=== PATIENT | male | born 1965 | race Caucasian/White ===

== ENCOUNTER 2024-02-02 20:10 | Emergency (ER) | payer OTHER, SELFPAY ==
[2024-02-02 20:19] VITALS: BP 175/108
[2024-02-02 20:54] LABS: % Basophils 0.6 % (0-2); % Eosinophils 0.8 % (0-6); % Immature Granulocytes 0.3 % (0-0.5); % Lymphocytes 16.1 % (20.5-51.1); % Monocytes 8.8 % (1.7-9.3); % Neutrophils 73.4 % (42.2-75.2); Absolute Basophils 0.1 10^3/uL (0-0.2); Absolute Eosinophils 0.1 10^3/uL (0-0.7); Absolute Lymphocytes 1.4 10^3/uL (1.2-3.4); Absolute Monocytes 0.8 10^3/uL (0.1-0.6); Absolute Neutrophils 6.5 10^3/uL (1.4-6.5); Hematocrit 43.1 % (39.0-52.0); Hemoglobin 14.5 g/dL (13.0-18.0); Mean Corp Hgb Conc. 33.6 g/dL (33.0-37.0); Mean Corpuscular Hgb 32.8 pg (27.0-31.0); Mean Corpuscular Volume 97.5 fL (80.0-94.0); Nucleated Red Blood Cells % 0 % (-); Platelet Count 164 10^3/uL (130-400); Red Blood Cell Count 4.42 10^6/uL (4.70-6.10); Red Cell Dist. Width 12.6 % (11.5-14.5); White Blood Cell Count 8.8 10^3/uL (4.8-10.8)
[2024-02-02 21:06] LABS: ALT (SGPT) 46 U/L (0-50); AST (SGOT) 38 U/L (17-59); Albumin 4.1 g/dl (3.5-5.0); Alkaline Phosphatase 76 U/L (38-126); Blood Urea Nitrogen 17 mg/dl (9-20); Calcium 8.5 mg/dl (8.4-10.2); Carbon Dioxide 24 mmol/L (22-30); Chloride 105 mmol/L (98-107); Glucose 92 mg/dl (70-99); Potassium 3.7 mmol/L (3.5-5.1); Sodium 135 mmol/L (135-145); Total Bilirubin 0.8 mg/dl (0.2-1.3); Total Protein 6.8 g/dl (6.3-8.2); eGFR > 60.00
[2024-02-02 21:18] LABS: Troponin I < 0.012 ng/ml
--- NOTE | 2024-02-03 00:02 | ED.GENMED ---
History of Present Illness
<ISAAC Ann - Last Filed: 02/03/24 00:31>
General
Chief Complaint: Weakness
Source: patient
Exam Limitations: none
Time Seen by Provider: 02/02/24 23:58
Nursing documentation reviewed up to this point in time: agreed with
Travel History
Have you had any contact with someone who has COVID-19?: No
Do you have any symptoms of coronavirus? Fever > 100 degrees, chills, cough, shortness of breath, sore throat, loss of taste or smell, muscle aches, or headache?: No
History of Present Illness
History of Present Illness:
patient is a 59 y/o male with of HTN presenting for weakness x few weeks. patient states it has gotten worse in the last day. Patient states he notices it in times of exertion like walking or doing lawn work. Patient states nothing has made it
better or worse. patient states he will feel dizziness spontaneously that will resolve on tis own. Patient admits that he felt left sided facial weakness once today that resolved itself. patient denies SOB, CP, visual changes, palpitations, N/V/D/C,
fever. patient admits to 2-3 drinks of alcohol yesterday but denies any smoking. patients BP on admission was 175/108 for which he takes losartan for regularly. patient denies adequate water intake throughout the day.
Past History
<ISAAC Ann - Last Filed: 02/03/24 00:31>
Past History
ED Past Medical History: HTN
ED Past Surgical History: None
Social History
Tobacco: Non-smoker
Alcohol: Occasional
Review of Systems
<ISAAC Ann - Last Filed: 02/03/24 00:31>
Review of Systems
All Other Systems: Not applicable
Constitutional: Reports fatigue
EENT: Reports no symptoms
Respiratory: Reports no symptoms
Cardiac: Reports no symptoms
ABD/GI: Reports no symptoms
: Reports no symptoms
Musculoskeletal: Reports no symptoms
Skin: Reports no symptoms
Neurological: Reports dizzy, weakness and numbness
Endocrine: Reports no symptoms
Hematologic/Lymphatic: Reports no symptoms
Psychiatric: Reports no symptoms
Phy Exam
<ISAAC Ann - Last Filed: 02/03/24 00:31>
General Physical Exam
General Presentation: well appearing and no apparent distress
General Skin: warm and dry
General Habitus: normal
General Mental: alert
General Hydration: appears well hydrated
ENT Exam
ENT Exam: EOMI, pharynx normal, neck supple and normocephalic
Eye Exam
Eye Exam: PERRL, cornea clear and conjunctiva normal
Cardiovascular Exam
Cardiovascular Exam: regular rate/rhythm, no edema, no murmur and normal peripheral pulses
Pulmonary Exam
Pulmonary Exam: lungs clear, no respiratory distress, no rales, no crackles, no rhonchi, no stridor, no wheezing and no cough
Gastrointestinal Exam
Gastrointestinal Exam: normal bowel sounds, non tender, soft, no organomegaly, no pulsatile mass and non distended
Neurological Exam
Neurological Exam: alert, oriented x3, no motor deficits and speech normal
Musculoskeletal Exam
Musculoskeletal Exam: full ROM and no edema
Skin Exam
Skin Exam: normal color, warm/dry, no rash and no petechia
Psychiatric Exam
Psychiatric Exam: normal mood/affect
Course
<ISAAC Ann - Last Filed: 02/03/24 00:31>
Orders/Labs/Results
Orders:
Orders
02/02/24 20:27
Electrocardiogram (*1) Urgent
Reason for Study: Fatigue / Weakness
EKG- Treatment ONCE
02/02/24 20:47
CMP [Comprehensive Metabolic Panel] Urgent
Complete Blood Count/With Diff Urgent
Troponin I Urgent
02/03/24 01:19
Orthostatic VS- Treatment ONCE
02/03/24 01:20
Orthostatic VS- Treatment ONCE
Abnormal Lab Results
02/02/24
20:47
RBC 4.42 L 10^6/uL
(4.70-6.10)
MCV 97.5 H fL
(80.0-94.0)
MCH 32.8 H pg
(27.0-31.0)
MPV 11.0 H fL
(7.4-10.4)
Absolute Monos (auto) 0.8 H 10^3/uL
(0.1-0.6)
Lymphocytes % 16.1 L %
(20.5-51.1)
02/02/24 20:47
02/02/24 20:47
Vital Signs
Initial and Last Documented VS:
Initial Vital Signs
Temp Pulse Resp BP Pulse Ox
98.2 F 103 20 175/108 97
02/02/24 20:19 02/02/24 20:19 02/02/24 20:19 02/02/24 20:19 02/02/24 20:19
Last Documented Vital Signs
Temp Pulse Resp BP Pulse Ox
98.2 F 103 20 175/108 97
02/02/24 20:19 02/02/24 20:19 02/02/24 20:19 02/02/24 20:19 02/02/24 20:19
<Rajat Boo, DO - Last Filed: 02/03/24 01:31>
Orders/Labs/Results
Orders:
Orders
02/02/24 20:27
Electrocardiogram (*1) Urgent
Reason for Study: Fatigue / Weakness
EKG- Treatment ONCE
02/02/24 20:47
CMP [Comprehensive Metabolic Panel] Urgent
Complete Blood Count/With Diff Urgent
Troponin I Urgent
02/03/24 01:19
Orthostatic VS- Treatment ONCE
02/03/24 01:20
Orthostatic VS- Treatment ONCE
Abnormal Lab Results
02/02/24
20:47
RBC 4.42 L 10^6/uL
(4.70-6.10)
MCV 97.5 H fL
(80.0-94.0)
MCH 32.8 H pg
(27.0-31.0)
MPV 11.0 H fL
(7.4-10.4)
Absolute Monos (auto) 0.8 H 10^3/uL
(0.1-0.6)
Lymphocytes % 16.1 L %
(20.5-51.1)
02/02/24 20:47
02/02/24 20:47
Vital Signs
Initial and Last Documented VS:
Initial Vital Signs
Temp Pulse Resp BP Pulse Ox
98.2 F 103 20 175/108 97
02/02/24 20:19 02/02/24 20:19 02/02/24 20:19 02/02/24 20:19 02/02/24 20:19
Last Documented Vital Signs
Temp Pulse Resp BP Pulse Ox
98.2 F 103 20 175/108 97
02/02/24 20:19 02/02/24 20:19 02/02/24 20:19 02/02/24 20:19 02/02/24 20:19
<ISAAC Ann - Last Filed: 02/03/24 00:31>
MDM/Problems Addressed
Differential Diagnosis Includes:
THN exacerbation
CVA
dysrrhythmia
MDM/Problems Addressed:
patient is 59 y/o male presenting for weakness x few days
Chronic conditions affecting care: HTN
<Rajat Boo DO - Last Filed: 02/03/24 01:31>
MDM/Problems Addressed
Differential Diagnosis Includes:
HTN exacerbation
CVA
dysrrhythmia
<ISAAC Ann - Last Filed: 02/03/24 00:31>
*Critical Care Note
Total Time (30-74mins, 75-104mins- exclusive of procedures): Not Applicable
<Rajat Boo DO - Last Filed: 02/03/24 01:31>
*Critical Care Note
Total Time (30-74mins, 75-104mins- exclusive of procedures): Not Applicable
<Rajat Boo DO - Last Filed: 02/03/24 01:31>
Patient Management
Social determinants of health affecting care: Living situation and Strong social support
ED Attending Note
<ISAAC Ann - Last Filed: 02/03/24 00:31>
-
Portions of this chart may have been created with voice recognition software.� Occasional wrong word or��sound alike� substitutions may have occurred due to the inherent limitations of voice recognition software.
<Rajat Boo DO - Last Filed: 02/03/24 01:31>
ED Attending Note
Patient seen and examined by attending physician: Yes
I performed the substantive portion of visit, reviewed & personally made and approve the management plan that is documented in note by myself or ESTEFANY.: No
ED Attending Note:
Pleasant 59-year-old male presents with weakness that has been going on for the last few weeks. He denies chest pain or shortness of breath. Today he was at his yard gardening and doing yard work. He states that he felt weak again. Patient did
have intermittent dizziness which she stated resolved spontaneously. Patient also reported left-sided facial weakness that was very brief and completely resolved hours before coming to the emergency department. Patient admits to drinking 2-3
alcoholic beverages yesterday. Patient does have a history of hypertension. Patient was seen in conjunction with the PA student. I have reviewed and agree with the history and treatment plan presented. On my independent physical exam, patient is
awake, alert, and oriented x3, no acute distress. Heart is regular rate and rhythm. Lungs are clear to auscultation bilaterally without wheezes rales or rhonchi present. Abdomen is soft and nontender. Moves all 4 extremities. At this point he
had received a liter of fluids and states that his symptoms have completely resolved. Patient denies any chest pain or shortness of breath. I do feel that patient should follow-up with cardiology as he has never been to one. His mother went to
Dr. Osborne and he prefers Dr. Osborne. Patient to be discharged home.
Discharge Plan
Departure
Condition: Good
Discharge Problem:
Weakness
Instructions: Generalized Weakness (DC), BLOOD PRESSURE
Referrals:
Allan Mallory DO [Family Provider] -
Phoenix Osborne MD [Active] -
Activity Restrictions/Additional Instructions:
It was a pleasure meeting you and taking part in your care. We hope for your continued healing and wellness.
Please read discharge instructions in their entirety. However, they are for general education and may not describe your exact diagnosis at discharge. Information on your ER visit and medical conditions were discussed with you along with appropriate
follow up information...
If indicated, please take your medications as instructed and indicated on discharge paperwork.
Please schedule a follow up appointment as directed. Call to schedule an appointment
Please return to the emergency department with ANY change in, persisting, or worsening of symptoms. If any of your symptoms do not improve, or persist, or become more severe within 6-12 hours, please return to the emergency department for further
care.
Please return to the emergency department if you develop a headache, neck pain/stiffness, fever greater than 100.4F, chest pain, shortness of breath, persistent nausea, vomiting, slurred speech, difficulty walking, numbness/tingling, weakness, signs
of infection or any other symptoms that are worrisome to you.
If you have any questions or concerns please do not hesitate to call the Hospital at or E-mail me directly at [email or web address]
Interventions
Interventions:
*Risk Screen - Suicide Last Done: 02/02/24 20:19
*General Assessment Last Done: 02/02/24 20:19
*Neglect/Abuse Screening Last Done: 02/02/24 20:19
ED- Fall Risk Assessment Last Done: 02/02/24 20:19
*ED COVID-19 Vaccine History Last Done: 02/02/24 20:19
[2024-02-03 01:19] VITALS: BP 154/93; BP 157/91; BP 166/91; PULSE 74; PULSE 77; PULSE 79
== END 2024-02-03 01:53 | disposition home or self-care (01) ==
LOC: EMR 20:10
PROVIDERS: Emergency Medicine; EMERGENCY PHYSICIAN Student in an Organized Health Care Education/Training Program; FAMILY PHYSICIAN Family Medicine
DX: R53.1 Weakness (principal); I10 Essential (primary) hypertension
CPT/HCPCS: 99284; 80053; 84484; 85025; 93005

== ENCOUNTER 2024-02-03 19:52 | Emergency (ER) | payer OTHER, SELFPAY ==
[2024-02-03 19:56] VITALS: BP 190/106
[2024-02-03 20:12] LABS: % Basophils 1.1 % (0-2); % Eosinophils 2.7 % (0-6); % Immature Granulocytes 0.2 % (0-0.5); % Lymphocytes 34.7 % (20.5-51.1); % Monocytes 13.6 % (1.7-9.3); % Neutrophils 47.7 % (42.2-75.2); Absolute Basophils 0.1 10^3/uL (0-0.2); Absolute Eosinophils 0.1 10^3/uL (0-0.7); Absolute Lymphocytes 1.6 10^3/uL (1.2-3.4); Absolute Monocytes 0.6 10^3/uL (0.1-0.6); Absolute Neutrophils 2.1 10^3/uL (1.4-6.5); Hematocrit 42.6 % (39.0-52.0); Hemoglobin 14.8 g/dL (13.0-18.0); Mean Corp Hgb Conc. 34.7 g/dL (33.0-37.0); Mean Corpuscular Hgb 33.2 pg (27.0-31.0); Mean Corpuscular Volume 95.5 fL (80.0-94.0); Mean Platelet Volume 10.8 fL (7.4-10.4); Nucleated Red Blood Cells % 0 % (-); Platelet Count 184 10^3/uL (130-400); Red Blood Cell Count 4.46 10^6/uL (4.70-6.10); Red Cell Dist. Width 12.6 % (11.5-14.5); White Blood Cell Count 4.5 10^3/uL (4.8-10.8)
[2024-02-03 20:18] VITALS: BP 163/93
[2024-02-03 20:25] LABS: ALT (SGPT) 45 U/L (0-50); AST (SGOT) 44 U/L (17-59); Alkaline Phosphatase 75 U/L (38-126); Blood Urea Nitrogen 11 mg/dl (9-20); Calcium 8.7 mg/dl (8.4-10.2); Carbon Dioxide 27 mmol/L (22-30); Chloride 107 mmol/L (98-107); Glucose 108 mg/dl (70-99); Potassium 4.5 mmol/L (3.5-5.1); Sodium 137 mmol/L (135-145); Total Bilirubin 0.7 mg/dl (0.2-1.3); Total Protein 6.8 g/dl (6.3-8.2); eGFR > 60.00
[2024-02-03 20:38] LABS: Troponin I < 0.012 ng/ml
[2024-02-03 21:00] VITALS: BP 174/102
--- NOTE | 2024-02-03 21:46 | ED.GENMED ---
History of Present Illness
General
Chief Complaint: Chest Pain
Source: patient
Exam Limitations: none
Time Seen by Provider: 02/03/24 20:37
Nursing documentation reviewed up to this point in time: agreed with
Travel History
Have you had any contact with someone who has COVID-19?: No
Do you have any symptoms of coronavirus? Fever > 100 degrees, chills, cough, shortness of breath, sore throat, loss of taste or smell, muscle aches, or headache?: No
History of Present Illness
History of Present Illness:
Patient with history of hypertension on losartan, presents to ED secondary to intermittent chest pain since this afternoon, along with elevated blood pressure. Chest pain described as tightness, with radiation to his jaw, without any alleviating or
exacerbating factors. Denies trauma. Denies back pain. Denies leg pain or swelling. Denies shortness of breath. Denies dizziness. Denies nausea, vomiting, or diaphoresis. Of note, patient was seen in ED yesterday secondary to generalized
fatigue which occurred after working outdoors yesterday. In addition, over the past 2 weeks, patient is reporting exertional lightheadedness and fatigue, and 'not feeling well'. Denies smoking, but does admit to drinking alcohol socially. There
is family history of heart disease, with both mother and father in their 60s.
Past History
Past History
ED Past Medical History: HTN
ED Past Surgical History: None
Social History
Tobacco: Non-smoker
Alcohol: Occasional
Review of Systems
Review of Systems
Allergies reviewed?: Yes
All Other Systems: ROS reviewed and negative except as documented in HPI and ROS
Constitutional: Reports fatigue
EENT: Reports no symptoms
Cardiac: Reports chest pain
ABD/GI: Reports no symptoms
: Reports no symptoms
Musculoskeletal: Reports no symptoms
Skin: Reports no symptoms
Neurological: Reports weakness
Phy Exam
Physical Exam
Physical Exam:
Physical Exam
General: no apparent distress, not acutely ill. afebrile
Head: nc/at. eomi
Neck: supple. no meningeal signs.
Heart: s1/s2 regular rate and rhythm, no murmur. equal radial pulses.
Lungs: no acute respiratory distress. clear bilaterally
Abdomen: normal bowel sounds. not tender.
Neuro: alert and oriented. no focal neurological deficits
Skin: no rash
Psychiatric: well kept. interactive and cooperative
Extremities: no edema. no calf tenderness.
Scores
Heart Score for Chest Pain Patients
STEMI patient?: No
History: Slightly or Non-Suspicious
ECG: Normal
Age: >45 - <65 years
Risk Factors: 1 or 2 Risk Factors
Troponin: </= Normal Limit
Heart Score for Chest Pain Patients: 2
Heart Score Risk: 2.5% MACE over next 6 weeks
Course
Orders/Labs/Results
Orders:
Orders
02/03/24 19:55
Electrocardiogram (*1) Urgent
Reason for Study: Chest Pain
EKG- Treatment ONCE
02/03/24 20:04
CMP [Comprehensive Metabolic Panel] Urgent
Complete Blood Count/With Diff Urgent
Troponin I Urgent
02/03/24 21:58
Amlodipine [Norvasc] 2.5 mg PO NOW STA
02/03/24 22:15
Amlodipine [Norvasc] 5 mg PO NOW STA
Abnormal Lab Results
02/03/24
20:04
WBC 4.5 L 10^3/uL
(4.8-10.8)
RBC 4.46 L 10^6/uL
(4.70-6.10)
MCV 95.5 H fL
(80.0-94.0)
MCH 33.2 H pg
(27.0-31.0)
MPV 10.8 H fL
(7.4-10.4)
Monocytes % 13.6 H %
(1.7-9.3)
Glucose 108 H mg/dl
(70-99)
02/03/24 20:04
02/03/24 20:04
Vital Signs
Initial and Last Documented VS:
Initial Vital Signs
Temp Pulse Resp BP Pulse Ox
97.8 F 72 24 190/106 98
02/03/24 19:56 02/03/24 19:56 02/03/24 19:56 02/03/24 19:56 02/03/24 19:56
Last Documented Vital Signs
Temp Pulse Resp BP Pulse Ox
97.8 F 65 17 186/102 97
02/03/24 19:56 02/03/24 22:55 02/03/24 22:00 02/03/24 22:55 02/03/24 22:45
MDM/Problems Addressed
MDM/Problems Addressed:
Patient with an unremarkable workup in ED, including blood work and EKG.
Discussed with Dr. Bell, cardiology. Recommends adding amlodipine to better control his blood pressure along with an outpatient follow-up with cardiology.
Pt and spouse agree with treatment plan.
*EKG
Interpreted by ED Provider?: Yes
EKG Intrepretation Date: 02/03/24
Heart Rate: 72
Rate: normal
Rhythm: sinus
[place]: normal axis
Interval: normal interval
*Critical Care Note
Total Time (30-74mins, 75-104mins- exclusive of procedures): Not Applicable
ED Attending Note
-
Portions of this chart may have been created with voice recognition software.� Occasional wrong word or��sound alike� substitutions may have occurred due to the inherent limitations of voice recognition software.
Discharge Plan
Departure
Patient Disposition: Home (Routine Discharge)
Date of Disposition: 02/03/24
Time of Disposition: 22:16
Patient with high blood pressure during this ER visit?: Yes
Condition: Fair
Discharge Problem:
Hypertension, Chest pain
Instructions: High Blood Pressure (DC), Chest Pain DCA Follow Up
Prescriptions:
New
amlodipine 5 mg tablet
5 mg PO DAILY Qty: 20 0RF
Referrals:
Minor Bell MD [Active] -
Allan Mallory DO [Family Provider] -
Activity Restrictions/Additional Instructions:
As discussed, please follow-up with referred pipe cleaning machine operator for further evaluation. Your prescriptions been sent electronically to [facility] pharmacy in [place].
Interventions
Interventions:
*Risk Screen - Suicide Last Done: 02/03/24 19:56
*General Assessment Last Done: 02/03/24 23:17
*Neglect/Abuse Screening Last Done: 02/03/24 19:56
*Nursing Disposition Last Done: 02/03/24 23:17
ED- Cardiac Assessment Last Done: 02/03/24 20:10
ED- Neurological Assessment Last Done: 02/03/24 20:10
ED- Pulmonary Assessment Last Done: 02/03/24 20:10
Discharge Date and Time
Discharge Date/Time: 02/03/24 22:55
[2024-02-03 22:00] VITALS: BP 186/102
[2024-02-03] MEDS: NORVASC 5 MG PO (22:55)
== END 2024-02-03 22:55 | disposition home or self-care (01) ==
LOC: EMR 19:52
PROVIDERS: EMERGENCY PHYSICIAN Emergency Medicine; FAMILY PHYSICIAN Family Medicine
DX: I10 Essential (primary) hypertension (principal); R07.89 Other chest pain; Z79.899 Other long term (current) drug therapy
CPT/HCPCS: 99283; 80053; 84484; 85025; 93005

== ENCOUNTER → 2024-02-21 11:26 | Outpatient (REF) | payer OTHER, SELFPAY | LOC: DHCBC/DCA 11:26 | PROVIDERS: ATTENDING PHYSICIAN Internal Medicine Cardiovascular Disease; FAMILY PHYSICIAN Family Medicine | DX: R42 Dizziness and giddiness (principal); R07.2 Precordial pain | CPT/HCPCS: 78452; 93017; A9500 ==

== ENCOUNTER → 2024-02-26 08:07 | Outpatient (REF) | payer OTHER, SELFPAY | LOC: HWRCS 08:07 | PROVIDERS: ATTENDING PHYSICIAN Internal Medicine Cardiovascular Disease; FAMILY PHYSICIAN Family Medicine | DX: R07.2 Precordial pain (principal); R42 Dizziness and giddiness | CPT/HCPCS: 93306 ==

== ENCOUNTER 2024-11-18 12:32 | Emergency (ER) | payer OTHER, SELFPAY ==
[2024-11-18 12:54] VITALS: BP 160/96; BMI 34.2
[2024-11-18 13:14] LABS: % Basophils 0.7 % (0-2); % Eosinophils 1.6 % (0-6); % Immature Granulocytes 0.2 % (0-0.5); % Lymphocytes 28.6 % (20.5-51.1); % Monocytes 8.6 % (1.7-9.3); % Neutrophils 60.3 % (42.2-75.2); Absolute Eosinophils 0.1 10^3/uL (0-0.7); Absolute Lymphocytes 1.3 10^3/uL (1.2-3.4); Absolute Monocytes 0.4 10^3/uL (0.1-0.6); Absolute Neutrophils 2.7 10^3/uL (1.4-6.5); Hematocrit 45.3 % (39.0-52.0); Hemoglobin 15.6 g/dL (13.0-18.0); Mean Corp Hgb Conc. 34.4 g/dL (33.0-37.0); Mean Corpuscular Hgb 33.6 pg (27.0-31.0); Mean Corpuscular Volume 97.6 fL (80.0-94.0); Mean Platelet Volume 10.8 fL (7.4-10.4); Nucleated Red Blood Cells % 0 % (-); Platelet Count 174 10^3/uL (130-400); Red Blood Cell Count 4.64 10^6/uL (4.70-6.10); White Blood Cell Count 4.5 10^3/uL (4.8-10.8)
[2024-11-18 13:35] LABS: ALT (SGPT) 41 U/L (0-50); AST (SGOT) 34 U/L (17-59); Albumin 4.2 g/dl (3.5-5.0); Alkaline Phosphatase 60 U/L (38-126); Blood Urea Nitrogen 12 mg/dl (9-20); Calcium 9.2 mg/dl (8.4-10.2); Carbon Dioxide 27 mmol/L (22-30); Chloride 103 mmol/L (98-107); Estimated Creatinine Clearance 91 ml/min; Glucose 116 mg/dl (70-99); Potassium 4.3 mmol/L (3.5-5.1); Sodium 138 mmol/L (135-145); Total Bilirubin 0.5 mg/dl (0.2-1.3); Total Protein 6.9 g/dl (6.3-8.2); eGFR > 60.00
[2024-11-18 13:38] LABS: Troponin I < 0.012 ng/ml
[2024-11-18 14:00] VITALS: BP 148/85
--- NOTE | 2024-11-18 17:42 | ED.GENMED ---
History of Present Illness
<Rubi Higuera PA-C - Last Filed: 11/18/24 18:55>
General
Chief Complaint: Chest Pain
Source: patient
Exam Limitations: none
Time Seen by Provider: 11/18/24 17:42
Nursing documentation reviewed up to this point in time: agreed with
History of Present Illness
History of Present Illness:
59-year-old male with past medical history of GERD, hypertension presents emergency department today with concerns of chest pain for the past week. Patient states that it started coming and going at random and now is constant. Patient states that
he feels this in the middle of his chest at times will radiate to the left side of his chest. Patient states he does have a history of herniated disc in his lower cervical spine and he gets pain that radiates into his back paresthesias in his arm
with this. Patient believes that this chest pain may represent radiation from his symptoms in his back. Patient states that his dad did have a heart attack at age 70 but denies any other history of cardiac disease. Patient denies any shortness of
breath, lightheadedness, dizziness, syncopal episodes. Patient states that he has not been lifting heavy things or not have any strains recently. Patient denies any recent long distance travel, any swelling in his legs. Patient has seen
criminalist from [facility] in the past for persistent hypertension. Patient states he does have GERD but this feels different, the pain does not worsen after meals. Patient rates the pain a 4 out of 10
Past History
<Rubi Higuera PA-C - Last Filed: 11/18/24 18:55>
Past History
ED Past Medical History: HTN
ED Past Surgical History: None
Social History
Tobacco: Non-smoker
Alcohol: Occasional
Review of Systems
<Rubi Higuera PA-C - Last Filed: 11/18/24 18:55>
Review of Systems
All Other Systems: ROS reviewed and negative except as documented in HPI and ROS
Phy Exam
<Rubi Higuera PA-C - Last Filed: 11/18/24 18:55>
Physical Exam
Physical Exam:
General: Patient is well appearing and in no acute distress; non-toxic
Skin: Warm and dry, no rashes or lesions
Head: Normocephalic, atraumatic
Eyes: Sclera non-icteric. EOMs intact. PERRLA.
Cardiac: Regular rate and rhythm, no murmur, no tenderness to palpation of the external chest wall
Peripheral Vascular: No lower extremity swelling or edema
Pulm: Normal respiratory effort, no wheezes, rhonchi
Musculoskeletal: No tenderness to palpation of the ribs, no palpapble crepitus
Neuro: CN II-XII intact, no focal neurologic deficits.
Psychiatric: Appropriate mood and affect.
Scores
<Rubi Higuera PA-C - Last Filed: 11/18/24 18:55>
Heart Score for Chest Pain Patients
STEMI patient?: No
History: Slightly or Non-Suspicious
ECG: Normal
Age: >45 - <65 years
Risk Factors: 1 or 2 Risk Factors
Troponin: </= Normal Limit
Heart Score for Chest Pain Patients: 2
Heart Score Risk: 2.5% MACE over next 6 weeks
Course
<Rubi Higuera PA-C - Last Filed: 11/18/24 18:55>
Orders/Labs/Results
Orders:
Orders
11/18/24 12:33
Electrocardiogram (*1) Urgent
Reason for Study: Chest Pain
EKG- Treatment ONCE
11/18/24 13:02
Complete Blood Count/With Diff Urgent
Comprehensive Metabolic Panel Urgent
Troponin I Urgent
11/18/24 17:59
CR Chest - 2 Views Urgent
Comment:
Reason For Exam: chest pain
11/18/24 18:23
Ibuprofen [Motrin] 400 mg PO NOW STA
Abnormal Lab Results
11/18/24
13:02
WBC 4.5 L 10^3/uL
(4.8-10.8)
RBC 4.64 L 10^6/uL
(4.70-6.10)
MCV 97.6 H fL
(80.0-94.0)
MCH 33.6 H pg
(27.0-31.0)
MPV 10.8 H fL
(7.4-10.4)
Glucose 116 H mg/dl
(70-99)
11/18/24 13:02
11/18/24 13:02
Vital Signs
Initial and Last Documented VS:
Initial Vital Signs
Temp Pulse Resp BP Pulse Ox
97.6 F 76 18 160/96 99
11/18/24 12:54 11/18/24 12:54 11/18/24 12:54 11/18/24 12:54 11/18/24 12:54
Last Documented Vital Signs
Temp Pulse Resp BP Pulse Ox
98.1 F 71 18 168/91 100
11/18/24 17:48 11/18/24 17:48 11/18/24 17:48 11/18/24 17:48 11/18/24 17:48
<Tatum Art, DO - Last Filed: 11/18/24 18:56>
Orders/Labs/Results
Orders:
Orders
11/18/24 12:33
Electrocardiogram (*1) Urgent
Reason for Study: Chest Pain
EKG- Treatment ONCE
11/18/24 13:02
Complete Blood Count/With Diff Urgent
Comprehensive Metabolic Panel Urgent
Troponin I Urgent
11/18/24 17:59
CR Chest - 2 Views Urgent
Comment:
Reason For Exam: chest pain
11/18/24 18:23
Ibuprofen [Motrin] 400 mg PO NOW STA
Abnormal Lab Results
11/18/24
13:02
WBC 4.5 L 10^3/uL
(4.8-10.8)
RBC 4.64 L 10^6/uL
(4.70-6.10)
MCV 97.6 H fL
(80.0-94.0)
MCH 33.6 H pg
(27.0-31.0)
MPV 10.8 H fL
(7.4-10.4)
Glucose 116 H mg/dl
(70-99)
11/18/24 13:02
11/18/24 13:02
Vital Signs
Initial and Last Documented VS:
Initial Vital Signs
Temp Pulse Resp BP Pulse Ox
97.6 F 76 18 160/96 99
11/18/24 12:54 11/18/24 12:54 11/18/24 12:54 11/18/24 12:54 11/18/24 12:54
Last Documented Vital Signs
Temp Pulse Resp BP Pulse Ox
98.1 F 71 18 168/91 100
11/18/24 17:48 11/18/24 17:48 11/18/24 17:48 11/18/24 17:48 11/18/24 17:48
Audelialt;Rubi Higuera PA-C - Last Filed: 11/18/24 18:55>
MDM/Problems Addressed
Differential Diagnosis Includes:
see below
MDM/Problems Addressed:
NUMBER AND COMPLEXITY OF PROBLEMS ADDRESSED AT THE ENCOUNTER
� Chronic conditions affecting care: HTN, GERD
� Acute Exacerbation and/or Progression of Chronic Illness: n/a
� Differential Diagnosis includes: costochondritis, ACS, musculoskeletal sprain/strain
AMOUNT AND/OR COMPLEXITY OF DATA TO BE REVIEWED AND ANALYZED
� I performed an independent evaluation of and my interpretation is:
EKG: normal sinus rhythm with no ischemic changes rate 71
X-rays: no widened mediastinum, no pneumothorax
Laboratory Studies: CBC and CMP unremarkable
Other:
� Review of other/old records: Reviewed previous records from 02/03/2024, patient seen for intermittent chest pain and elevated high blood pressure, patient was discharged to follow-up with cardiology, and he was started on additional blood pressure
medication
� Clinical information was obtained by an independent historian: N/A
� Prescriptions/Medications Considered but not given: none
� Further testing considered but not performed: none
RISK OF COMPLICATIONS AND/OR MORBIDITY OR MORTALITY OF PATIENT MANAGEMENT
� Social determinants of health affecting care: none
� Discussion with other providers: ER attending
� Escalation of care including admission/observation vs risk of discharge considered:
59-year-old male with a past medical history of hypertension, GERD presents emergency department today with concerns of chest pain. This has been going on for the past week. Patient states it started as intermittent but now is constant. He has no
other associate symptoms. On exam he is well-appearing, he has no tenderness palpation of external chest wall. CBC and CMP is unremarkable. His chest x-ray is negative. Suspect possible costochondritis or musculoskeletal sprain/strain. Patient
stable for discharge, recommended follow-up with criminalist. Patient has no known history of coronary artery disease.
<Rubi Higuera PA-C - Last Filed: 11/18/24 18:55>
*Critical Care Note
Total Time (30-74mins, 75-104mins- exclusive of procedures): Not Applicable
ED Attending Note
<Rubi Higuera PA-C - Last Filed: 11/18/24 18:55>
-
Portions of this chart may have been created with voice recognition software.� Occasional wrong word or��sound alike� substitutions may have occurred due to the inherent limitations of voice recognition software.
<Tatum Davala, DO - Last Filed: 11/18/24 18:56>
ED Attending Note
Patient seen and examined by attending physician: Yes
I performed the substantive portion of visit, reviewed & personally made and approve the management plan that is documented in note by myself or ESTEFANY.: Yes
I performed a history and physical exam of patient and discussed management with resident, I reviewed resident's note and agree with documented findings and plan of care.: Yes
ED Attending Note:
59-year-old male with history of hypertension and GERD presenting for 1 week of chest pain. Patient reports it was initially midsternal, no left-sided and has been more constant. Denies any exertional component. Does note chronic neck issues,
believes that the pain is coming from his neck and into his chest. Denies difficulty breathing. Denies any recent trauma. Denies any personal cardiac history, does note family history. Vital signs within normal limits.
On exam patient is well-appearing, no acute distress or discomfort. Unremarkable cardiac and pulmonary exam. EKG is nonischemic, unchanged from prior EKG in March. Patient also had a stress test in February 2024, low risk. Given duration of symptoms
and reassuring EKG, lower suspicion for ACS. Patient had laboratory analysis including undetectable troponin. At this time low risk by heart score. He is currently asymptomatic. Feel stable for discharge, however with outpatient primary care
follow-up. Return precautions discussed and patient verbalized understanding
Discharge Plan
Departure
Patient Disposition: Home (Routine Discharge)
Date of Disposition: 11/18/24
Time of Disposition: 18:44
Patient with high blood pressure during this ER visit?: Yes
Condition: Good
Discharge Problem:
Chest pain
Instructions: BLOOD PRESSURE, Chest Pain
Prescriptions:
No Action
amlodipine 5 mg tablet
5 mg PO DAILY Qty: 20 0RF
valsartan 160 mg Capsule
160 mg PO DAILY
Referrals:
Minor Bell MD [Active] - Call in 1-3 days for appt
Allan Mallory, [Family Provider] -
Activity Restrictions/Additional Instructions:
Please follow up with Dr. Bell and your primary care provider.
PLEASE RETURN EMERGENCY DEPARTMENT SHOULD YOU DEVELOP AN ACUTE WORSENING OF YOUR PAIN, SHORTNESS OF BREATH, LIGHTHEADEDNESS, DIZZINESS, SYNCOPAL EPISODES, HEADACHE, PAIN IN YOUR LEFT ARM, OR ANY OTHER SIGNS OR SYMPTOMS WORRISOME TO YOU.
Interventions
Interventions:
*Risk Screen - Suicide Last Done: 11/18/24 12:54
*General Assessment Last Done: 11/18/24 17:45
*Neglect/Abuse Screening Last Done: 11/18/24 17:45
*ED COVID-19 Vaccine History Last Done: 11/18/24 12:54
ED- Cardiac Assessment Last Done: 11/18/24 17:51
Discharge Date and Time
Print Language: MONGOLIAN
[2024-11-18 17:44] VITALS: BMI 34.5
[2024-11-18 17:48] VITALS: BP 168/91
[2024-11-18 18:00] VITALS: BP 159/79
[2024-11-18] MEDS: MOTRIN 400 MG PO (18:38)
[2024-11-18 19:00] VITALS: BP 145/84
== END 2024-11-18 19:08 | disposition home or self-care (01) ==
LOC: EMR 12:32
PROVIDERS: Emergency Medicine; EMERGENCY PHYSICIAN Student in an Organized Health Care Education/Training Program; FAMILY PHYSICIAN Family Medicine
DX: R07.9 Chest pain, unspecified (principal); I10 Essential (primary) hypertension; K21.9 Gastro-esophageal reflux disease without esophagitis
CPT/HCPCS: 99285; 71046; 80053; 84484; 85025; 93005